=== PATIENT | female | born 1985 | race Caucasian/White ===

== ENCOUNTER 2024-08-04 23:24 | Emergency (ER) | payer BC ==
[2024-08-04] MEDS: Cyclobenzaprine 10 MG Tab PO ONE (23:53)
[2024-08-04] MEDS: Ketorolac 30 MG/ML SDV IM ONE (23:53)
[2024-08-05 00:23] LABS: BLOOD UREA NITROGEN,BUN 6 mg/dL (7-18); CALCIUM 9.2 mg/dL (8.6-10.2); CARBON DIOXIDE,CO2 28 mmol/L (21-32); CHLORIDE,CL 99 mmol/L (100-110); CREATININE 0.6 mg/dL (0.55-1.02); ESTIMATED GFR 117 mL/min (>60); GLUCOSE RANDOM 199 mg/dL (80-116); POTASSIUM,K 2.9 mmol/L (3.5-5.3); SODIUM,NA 137 mmol/L (135-145)
[2024-08-05 00:24] LABS: BASOPHILS ABSOLUTE AUTO 0.1 x10-3/uL (0.0-0.1); BASOPHILS PERCENT AUTO 1.1 % (0.2-1.5); EOSINOPHILS ABSOLUTE AUTO 0.1 x10-3/uL (0.0-0.8); EOSINOPHILS PERCENT AUTO 0.9 % (0.6-8.1); HEMATOCRIT 38.2 % (34.2-48.2); HEMOGLOBIN 13.1 g/dL (11.4-15.5); LYMPHOCYTES ABSOLUTE AUTO 2.3 x10-3/uL (1.0-4.4); LYMPHOCYTES PERCENT AUTO 34.2 % (18.4-52.1); MEAN CORPUSCULAR HEMOGLOBIN 32.4 pg (23.9-33.9); MEAN CORPUSCULAR HGB CONC 34.4 g/dL (31.9-34.8); MEAN CORPUSCULAR VOLUME 94.1 fL (76.7-100.5); MEAN PLATELET VOLUME 7.8 fL (7.1-12.4); MONOCYTES ABSOLUTE AUTO 0.5 x10-3/uL (0.3-1.0); MONOCYTES PERCENT AUTO 7.8 % (4.4-15.7); NEUTROPHILS ABSOLUTE AUTO 3.7 x10-3/uL (1.5-6.3); PLATELET COUNT,PLT 227 x10(3)uL (151-488); RED BLOOD CELL COUNT 4.06 x10(6)uL (3.60-5.20); RED CELL DISTRIBUTION WIDTH 13.4 % (12.3-16.5); WHITE BLOOD CELL COUNT,WBC 6.6 x10-3/uL (3.0-10.3)
[2024-08-05 00:35] LABS: A/G RATIO 0.8; ALANINE AMINOTRANSFERASE,ALT 87 U/L (12-36); ALBUMIN 3.4 g/dL (3.5-5.2); ALKALINE PHOSPHATASE 116 IU/L (56-112); ASPARTATE AMNIOTRANSFERASE,AST 84 IU/L (5-25); BILIRUBIN TOTAL 0.5 mg/dL (0.1-1.3); PROTEIN TOTAL,TP 7.9 g/dL (6.0-8.0)
[2024-08-05] MEDS: Potassium Chloride 20 MEQ in Premix Bag 1 BAG IV ONE (01:32)
[2024-08-05] MEDS: Potassium Chloride 100 ML ONE (01:38)
== END 2024-08-05 03:49 | disposition home or self-care (01) ==
LOC: FB.ED 23:24
DX: S70.02XA Contusion of left hip, initial encounter (principal); Z79.899 Other long term (current) drug therapy; W00.0XXA Fall on same level due to ice and snow, initial encounter
CPT/HCPCS: 36415; 73502; 80053; 83735; 85025; 96365; 96366; 96372; 99283; A9270; J1885; J3480